=== PATIENT | male | born 1985 | race Hispanic/Latino ===

== ENCOUNTER 2024-06-08 21:23 | Emergency (ER) | payer BC ==
[~2024-06-08] VITALS: Ht 160 cm; Wt 75.3 kg
[2024-06-08 21:25] VITALS: PULSE 69; RESP 18; TEMP 99
[2024-06-08] MEDS ORDERED: FLUORESCEIN SOD(OPTH) 1 MG STRP ONE (22:32)
[2024-06-08 23:13] VITALS: BP 137/62; PULSE 71; RESP 18; TEMP 98.3; O2SAT 98
[2024-06-09] MEDS: FLUORESCEIN SOD(OPTH) 1 MG STRP OP ONE (03:04)
== END 2024-06-08 22:42 | disposition home or self-care (01) ==
LOC: FSED 21:51
DX: B02.9 Zoster without complications (principal); F17.210 Nicotine dependence, cigarettes, uncomplicated
CPT/HCPCS: 99282